=== PATIENT | female | born 1965 | race Caucasian/White ===

== ENCOUNTER 2018-04-12 11:21 | Emergency (ER) | payer MEDICAID ==
--- NOTE | 2018-04-12 12:04 | Emergency Department Record ---
History of Present Illness - General Chief complaint: ENT Stated complaint: NEEDS EARS FLUSHED Time Seen by Provider: 04/12/18 12:00 Source: Patient Mode of Arrival: Ambulatory - History of Present Illness Initial comments: Wax in ears bilateral L>R No other complaints. Hx of same. Uses QTips. Onset/Timin -: Week(s) Location: R ear, L ear Severity: Moderate Improves with: None Worsens with: None Context- Ear: Other - Related Data Home Medications Medication Instructions Recorded Confirmed Last Taken Calcium Carbonate/Vitamin D3 1 tab PO DAILY 04/12/18 04/12/18 04/12/18 [Calcium 1,000 + D3 Caplet] Cholecalciferol (Vitamin D3) 1 cap PO WEEKLY 04/12/18 04/12/18 Unknown [Vitamin D3] Dicyclomine HCl [Bentyl] 20 mg PO ASDIR PRN 04/12/18 04/12/18 Unknown Levothyroxine Sodium [Synthroid] 300 mcg PO DAILY 04/12/18 04/12/18 04/12/18 Allergies Allergy/AdvReac Type Severity Reaction Status Date / Time adhesive tape Allergy HIVES Verified 04/12/18 11:26 Travel Screening - Travel/Exposure Within Last 30 Days Have you traveled within the last 30 days?: No - Travel/Exposure Within Last Year Have you traveled outside the [place] in the last year?: No - Additonal Travel Details Have you been exposed to anyone with a communicable illness?: No - Travel Symptoms Symptom Screening: None Review of Systems Constitutional: Denies: Chills, Fever, Malaise Eyes: Denies: Eye pain, Photophobia ENT: Reports: Ear pain. Denies: Congestion Respiratory: Denies: Cough Cardiovascular: Denies: Arrhythmia, Chest pain Endocrine: Denies: Fatigue Gastrointestinal: Denies: Abdominal pain Musculoskeletal: Denies: Arthralgia Neurological: Denies: Abnormal gait Past Medical History - SOCIAL HISTORY Smoking Status: Never smoker Alcohol Use: None Drug Use: None - RESPIRATORY Hx Respiratory Disorders: No - CARDIOVASCULAR Hx Cardio Disorders: No - NEURO Hx Neuro Disorders: No - GI Hx GI Disorders: Yes Hx Hiatal Hernia: Yes - Hx Genitourinary Disorders: No - ENDOCRINE Hx Endocrine Disorders: Yes Hx Thyroid Disease: Yes - MUSCULOSKELETAL Hx Musculoskeletal Disorders: No - PSYCH Hx Psych Problems: No - HEMATOLOGY/ONCOLOGY Hx Hematology/Oncology Disorders: No Family Medical History Any Significant Family History?: No Physical Exam - General General Appearance: Alert, Oriented x3, Cooperative - Head Head exam: Atraumatic - Eye Eye exam: PERRL, EOMI - ENT ENT exam: Mucous membranes moist, Normal external ear exam, Normal orophraynx Ear exam: Other (Bilateral cerumin impaction. ) Nasal Exam: Normal inspection Mouth exam: Normal external inspection - Neck Neck exam: Normal inspection. negative: Lymphadenopathy - Respiratory Respiratory exam: Normal lung sounds bilaterally. negative: Rhonchi - Cardiovascular Cardiovascular Exam: Normal rhythm, Normal heart sounds - Extremities Extremities exam: Full ROM - Neurological Neurological exam: Alert, Normal gait, Oriented X3 Course Vital Signs 04/12/18 11:31 Temperature 98.1 F Pulse Rate 97 H Respiratory 20 Rate Blood Pressure 139/104 Pulse Ox 97 Disposition Disposition: Discharge Clinical Impression: Ceruminosis Disposition: Home, Self-Care Condition: (1) Good Instructions: Cerumen Impaction (ED) Quality - Blood Pressure Screening Does Patient Have Any of the Following: No Blood Pressure Classification: Hypertensive Reading Systolic Measurement: 139 Diastolic Measurement: 104
== END 2018-04-12 12:30 | disposition home or self-care (01) ==
LOC: ER 11:21
DX: H61.23 Impacted cerumen, bilateral (principal)
CPT/HCPCS: 99282

== ENCOUNTER 2018-11-30 17:44 | Emergency (ER) | payer MEDICAID ==
--- NOTE | 2018-11-30 18:12 | Emergency Department Record ---
History of Present Illness - General Chief complaint: ENT Stated complaint: LT EAR PLUGGED Time Seen by Provider: 11/30/18 18:03 Source: Patient, RN notes reviewed Mode of Arrival: Ambulatory - History of Present Illness Initial comments: patient is here because of a popping sound and drainage from the left ear this am and her right is plugged. No wax seen inthe left ear but TM is red and looks infected the right ear canal is full of wax and that is not her problem ear today. Onset/Timin -: Hour(s) Location: R ear Consistency: Constant Improves with: None Worsens with: None Associated Symptoms: Hearing loss - Related Data Home Medications Medication Instructions Recorded Confirmed Last Taken Ergocalciferol (Vitamin D2) 50,000 unit PO WEEKLY 11/30/18 11/30/18 Unknown [Vitamin D2] Multivitamin with Folic Acid [[facility] 1 tab PO DAILY 11/30/18 11/30/18 Unknown One Daily Essential Tablet] Omeprazole [Prilosec] 20 mg PO DAILY 11/30/18 11/30/18 Unknown Ropinirole HCl [Ropinirole ER] 2 mg PO QHS 11/30/18 11/30/18 Unknown Ursodiol 300 mg PO DAILY 11/30/18 11/30/18 Unknown Previous Rx's Medication Instructions Recorded Amoxicillin [Amoxil] 500 mg PO TID #60 tab.chew 11/30/18 Allergies Allergy/AdvReac Type Severity Reaction Status Date / Time adhesive tape Allergy HIVES Verified 04/12/18 11:26 codeine Allergy HIVES Verified 11/30/18 17:56 cough syrup Allergy HIVES Uncoded 11/30/18 17:56 Travel Screening - Travel/Exposure Within Last 30 Days Have you traveled within the last 30 days?: No Review of Systems Reviewed: No additional complaints except as noted below Constitutional: Reports: As per HPI. Denies: Chills, Fever, Malaise, Night sweats, Weakness, Weight change Eyes: Reports: As per HPI. Denies: Eye discharge, Eye pain, Photophobia, Vision change ENT: Reports: As per HPI. Denies: Congestion, Dental pain, Ear pain, Epistaxis , Hearing loss, Throat pain Respiratory: Reports: As per HPI. Denies: Cough, Dyspnea, Hemoptysis, Stridor, Wheezes Cardiovascular: Reports: As per HPI. Denies: Arrhythmia, Chest pain, Dyspnea on exertion, Edema, Murmurs, Orthopnea, Palpitations, Paroxysmal nocturnal dyspnea, Rheumatic Fever, Syncope Endocrine: Reports: As per HPI. Denies: Fatigue, Heat or cold intolerance, Polydipsia, Polyuria Gastrointestinal: Reports: As per HPI. Denies: Abdominal pain, Constipation, Diarrhea, Hematemesis, Hematochezia, Melena, Nausea, Vomiting Genitourinary: Reports: As per HPI. Denies: Abnormal menses, Discharge, Dyspareunia, Dysuria, Frequency, Hematuria, Incontinence, Retention, Urgency Musculoskeletal: Reports: As per HPI. Denies: Arthralgia, Back pain, Gout, Joint swelling, Myalgia, Neck pain Skin: Reports: As per HPI. Denies: Bruising, Change in color, Change in hair/ nails, Lesions, Pruritus, Rash Neurological: Reports: As per HPI. Denies: Abnormal gait, Confusion, Headache, Numbness, Paresthesias, Seizure, Tingling, Tremors, Vertigo, Weakness Psychiatric: Reports: As per HPI. Denies: Anxiety, Auditory hallucinations, Depression, Homicidal thoughts, Suicidal thoughts, Visual hallucinations Hematological/Lymphatic: Reports: As per HPI. Denies: Anemia, Blood Clots, Easy bleeding, Easy bruising, Swollen glands Past Medical History - SOCIAL HISTORY Smoking Status: Never smoker - RESPIRATORY Hx Respiratory Disorders: No - CARDIOVASCULAR Hx Cardio Disorders: No - NEURO Hx Neuro Disorders: No - GI Hx GI Disorders: Yes Hx Hiatal Hernia: Yes - Hx Genitourinary Disorders: No - ENDOCRINE Hx Endocrine Disorders: Yes Hx Thyroid Disease: Yes - MUSCULOSKELETAL Hx Musculoskeletal Disorders: No - PSYCH Hx Psych Problems: No - HEMATOLOGY/ONCOLOGY Hx Hematology/Oncology Disorders: No Family Medical History Any Significant Family History?: No Physical Exam - General General Appearance: Alert, Oriented x3, Cooperative, No acute distress - Head Head exam: Normal inspection - Eye Eye exam: Normal appearance, PERRL Pupils: Normal accommodation - ENT ENT exam: Normal orophraynx, Other (red TM left ear and wax in the right ear) Ear exam: Normal external inspection. negative: External canal tenderness Nasal Exam: Normal inspection. negative: Discharge, Sinus tenderness Mouth exam: Normal external inspection, Tongue normal Teeth exam: Normal inspection. negative: Dental caries Throat exam: Normal inspection. negative: Tonsillar erythema, Tonsillar exudate - Neck Neck exam: Normal inspection, Full ROM. negative: Tenderness - Respiratory Respiratory exam: Normal lung sounds bilaterally. negative: Respiratory distress - Cardiovascular Cardiovascular Exam: Regular rate, Normal rhythm, Normal heart sounds - GI/Abdominal GI/Abdominal exam: Soft, Normal bowel sounds. negative: Tenderness - Rectal Rectal exam: Deferred - exam: Deferred - Extremities Extremities exam: Normal inspection, Full ROM, Normal capillary refill. negative: Tenderness - Back Back exam: Reports: Normal inspection, Full ROM. Denies: Muscle spasm, Rash noted, Tenderness - Neurological Neurological exam: Alert, Normal gait, Oriented X3, Reflexes normal - Psychiatric Psychiatric exam: Normal affect, Normal mood - Skin Skin exam: Dry, Intact, Normal color, Warm Course Vital Signs 11/30/18 17:51 Temperature 98.6 F Pulse Rate 96 H Respiratory 18 Rate Blood Pressure 111/76 Pulse Ox 97 Disposition Clinical Impression: Otitis media Qualifiers: Otitis media type: suppurative Chronicity: acute Laterality: left Recurrence: non-recurrent Spontaneous tympanic membrane rupture: without spontaneous rupture Qualified Code(s): H66.002 - Acute suppurative otitis media without spontaneous rupture of ear drum, left ear Cerumen impaction Qualifiers: Laterality: right Qualified Code(s): H61.21 - Impacted cerumen, right ear Disposition: Home, Self-Care Condition: (1) Good Instructions: Otitis Media (ED) Additional Instructions: Use debrox ear wax remover drops in the right ear 5 drops at night for 10 days and than follow upth the family Dr to flush it out follow up with family dr in 5 to 7 days Prescriptions: Amoxicillin [Amoxil] 500 mg PO TID #60 tab.chew Time of Disposition: 18:17 Quality - Quality Measures Quality Measures: N/A - Blood Pressure Screening Does Patient Have Any of the Following: No Blood Pressure Classification: Normal BP Reading Systolic Measurement: 111 Diastolic Measurement: 76 Screening for High Blood Pressure: < Normal BP, F/U Not Required > [G8783]
== END 2018-11-30 18:15 | disposition home or self-care (01) ==
LOC: ER 17:44
DX: H66.002 Acute suppurative otitis media without spontaneous rupture of ear drum, left ear (principal); H61.21 Impacted cerumen, right ear
CPT/HCPCS: 99282